=== PATIENT | female | born 1990 | race Hispanic/Latino ===

== ENCOUNTER 2017-09-14 12:44 | Emergency (ER) | payer MEDICAID ==
[~2017-09-14 12:44] MED LIST: PREN-64 PO
[2017-09-14 13:22] LABS: APPEARANCE,URINE Clear (CLEAR); BILIRUBIN,URINE Negative (NEGATIVE); COLOR,URINE Yellow (YELLOW); GLUCOSE, URINE (UA) Negative (NEGATIVE); KETONES,URINE Negative (NEGATIVE); LEUKOCYTE ESTERASE ,URINE Negative (NEGATIVE); NITRATE,URINE Negative (NEGATIVE); OCCULT BLOOD,URINE Negative (NEGATIVE); PH,URINE 5.5 (5.0-8.0); PROTEIN,URINE Negative (NEGATIVE); UROBILINOGEN,URINE 0.2 mg/dL (0.2-1.0)
[2017-09-14] MEDS ORDERED: DICYCLOMINE HCL 10 MG/ML 2ML AMP IM ONE (13:28)
[2017-09-14] MEDS ORDERED: ONDANSETRON ODT 4 MG TAB ONE (13:28)
[2017-09-14 13:32] LABS: HCG,QUAL RESULT NEGATIVE (NEGATIVE)
== END 2017-09-14 14:07 | disposition home or self-care (01) ==
LOC: EDH 12:44
DX: K52.9 Noninfective gastroenteritis and colitis, unspecified (principal)
CPT/HCPCS: 81003; 81025; 87804 ×2; 96372; 99284; J0500